=== PATIENT | female | born 1975 | race Caucasian/White ===

== ENCOUNTER 2020-02-02 17:11 | Emergency (ER) | payer MEDICAID ==
[~2020-02-02] VITALS: Ht 172.7 cm; Wt 136.1 kg
[~2020-02-02 17:11] MED LIST: CELEXA; CIPROFLOXACIN500 M1; CIPROFLOXACIN500 M3 PO; FLOMAX; FLOMAX PO; LISINOPRIL20 MG PO; LORTAB 5 MG/5001 TAB; PERCOCET 5-3251 EACH PO; PERCOCET 7.5-31 EACH PO; PHENERGAN 25 MG25 MG PO
[2020-02-02] MEDS ORDERED: IRON18 M1 PO (17:26)
[2020-02-02] MEDS ORDERED: ZANAFLEX4 MG PO (19:04)
[2020-02-02] MEDS ORDERED: MEDROLDOSEPACK PO (19:04)
[2020-02-02] MEDS ORDERED: NORCO 5-325 TA1 EAC2 PO (19:04)
[2020-02-02] MEDS ORDERED: ONDANSETRON HCL4 M2 PO (19:15)
[2020-02-02 19:17] VITALS: BP 122/87
== END 2020-02-02 19:17 | disposition home or self-care (01) ==
LOC: M.ERS 17:11
DX: M47.896 Other spondylosis, lumbar region (principal); M51.26 Other intervertebral disc displacement, lumbar region; M54.32 Sciatica, left side; I10 Essential (primary) hypertension; Z87.442 Personal history of urinary calculi; Z86.19 Personal history of other infectious and parasitic diseases; Z86.73 Personal history of transient ischemic attack (TIA), and cerebral infarction without residual deficits; Z88.0 Allergy status to penicillin

== ENCOUNTER 2020-11-27 17:39 | Emergency (ER) | payer OTHER, MEDICAID ==
[~2020-11-27] VITALS: Ht 172.7 cm; Wt 163.3 kg
[~2020-11-27 17:39] MED LIST changes: +IRON18 M1 PO; +MEDROLDOSEPACK PO; +NORCO 5-325 TA1 EAC2 PO; +ONDANSETRON HCL4 M2 PO; +ZANAFLEX4 MG PO
[2020-11-27] MEDS ORDERED: PROAIR HFA8.5 GM INH (19:43)
--- NOTE | 2020-11-28 09:51 | EKG ---
[place] [address] ELECTROCARDIOGRAM REPORT Name: GARLAND LINN Room: [facility]#: [id number] Admission: 11/27/20 Attend Phys: Discharge: 11/27/20 Date of : 71 Date of Service: 11/27/201951 Report #: [id number] THIS REPORT FOR: //name// [facility] ED Test Date: 2020-11-27 Test Time: 19:52:57 Pat Name: GARLAND LINN Department: Room: Gender: Chief Marketing Officer: MD : [id number] Requested By: Sukh Lott Order Number: [id number] MD: Abram Lanier Measurements Intervals [place] Rate: 81 P: -45 [place]: 184 QRS: 3 QRSD: 90 T: 30 QT: 385 QTc: 447 Interpretive Statements Sinus or ectopic atrial rhythm poor r wave progression Compared to ECG 12/10/2011 20:34:59 no change Electronically Signed On 11-28-2020 9:50:56 CDT by Abram Lanier [email or web address] <ELECTRONICALLY SIGNED> By: Abram Lanier MD, [facility] 11/28/20 0950 51 51 Abram Lanier MD, [facility] /EPI
== END 2020-11-27 19:58 | disposition home or self-care (01) ==
LOC: M.ERS 17:39
DX: U07.1 COVID-19 (principal); Z79.899 Other long term (current) drug therapy; Z88.0 Allergy status to penicillin; I10 Essential (primary) hypertension; Z86.73 Personal history of transient ischemic attack (TIA), and cerebral infarction without residual deficits